=== PATIENT | female | born 1960 | race Caucasian/White ===

== ENCOUNTER → 2021-01-19 | Outpatient (CLI) | payer OTHER ==
--- NOTE | 2021-01-19 12:43 | REP ---
INDICATION: BRANNON DIAG MAMMO/BRANNON BREAST LUMPS. COMPARISON: 08/08/2019 the only prior for comparison. No DBT images for comparison. TECHNIQUE: Diagnostic bilateral digital mammography was carried out in the CC and MLO projections using both 2D and 3D modalities and compared to the prior exam. Patient complains of bilateral palpable masses. These areas were indicated on each breast by the technologist placing a triangular-shaped marker on the skin of each breast. In addition to standard imaging breast ultrasonography was obtained over the regions of interest FINDINGS: The breasts are unchanged in size and shape. Scattered dense heterogenous fibroglandular elements are seen status quo. There are no hong soft tissue densities or spiculated masses. There is no internal architectural distortion. Stable benign appearing calcifications are again seen bilaterally. Some of these are in groups, however, no one group is more suspicious than any other. No suspicious calcifications are evident. There is no skin thickening or nipple retraction. Diagnostic ultrasonography over the region of interest bilaterally shows no cystic or solid masses on the right. Seen in the left breast there is a potential seemingly encapsulated elongated somewhat oval-shaped isoechoic to hypoechoic nodule at the 7 o'clock position at the site of the clinically palpable abnormality and measuring approximately 5.1 x 0.9 x 2.2 cm. The Volpara volumetric breast density pattern is b. IMPRESSION: BIRADS/ACR category 3 probably benign left breast finding as described above seen ultrasonographically only without a mammographic correlate. Six-month follow-up recommended. A negative mammogram and a negative ultrasound examination should never curtail biopsy of a clinically palpable mass or clinically suspicious area the breast. Consider breast MRI at this time. This patient's Tyrer-Cuzick lifetime breast cancer risk assessment score is 19%. This mammogram was interpreted with the aid of an FDA-approved computer-aided detection system. The patient states she had a clinical breast exam in November 2020. The patient letter being requested is M3. RECOMMENDATION: As above <Electronically signed by Brando Chow > 01/19/21 [id number]
== END ==
LOC: M WHC 10:53
PROVIDERS: ATTEND Student in an Organized Health Care Education/Training Program
DX: N63.0 Unspecified lump in unspecified breast (principal)
CPT/HCPCS: 76642; 77066; G0279

== ENCOUNTER → 2021-02-28 | Outpatient (CLI) | payer OTHER ==
[~2021-02-28] MED LIST: PROHANCE 279.3MG/ML 15ML VIAL As Ordered ONE
--- NOTE | 2021-02-28 13:07 | REP ---
INDICATION: BREAST LUMP, FAMILY HX. Equivocal conventional breast imaging. COMPARISON: Comparison mammography and sonography are reviewed from January 19, 2021. TECHNIQUE: Three [facility] MRI imaging was performed with a dedicated breast coil. Axial, coronal, and sagittal T1 and T2 weighted scans were obtained with and without fat saturation in the usual fashion. The study includes dynamically acquired post gadolinium-enhanced imaging with image subtraction. Maximum intensity projection and multi planar reformation imaging is included as well. This study is interpreted with the aid of [employer], an FDA approved computer aided detection (CAD) software program, on a dedicated breast MRI workstation. The gadolinium enhancement dose is 13 mL of intravenous ProHance. FINDINGS: There is a moderate amount of fibroglandular tissue bilaterally corresponding with the mammographic pattern. There is mild background parenchymal enhancement. There is no evidence of axillary lymphadenopathy or significant breast cystic change. High-resolution pre and post-contrast T1 and T2 weighted scans show no suspicious morphologic abnormality in either breast. Dynamically acquired sequential postcontrast images show no suspicious area of enhancement and washout kinetics in either breast to suggest malignancy. Subtraction images show no additional abnormality. There are 2 small cysts adjacent to 1 another in the right lobe of the liver anteriorly. There is a focal magnetic field susceptibility artifact in the left superior breast at approximately 11-12 o'clock corresponding to the mammogram evidence of a metallic clip. The inferior and medial aspect of the left breast is unremarkable on MR. No mass lesion is seen. IMPRESSION: BI-RADS category 2 benign bilateral breast MRI findings. <Electronically signed by Eric Nam > 02/28/21 [id number]
== END ==
LOC: M RAD 10:30
PROVIDERS: ATTEND Student in an Organized Health Care Education/Training Program
DX: R92.2 Inconclusive mammogram (principal)
CPT/HCPCS: A9576; C8908